=== PATIENT | female | born 1980 | race Caucasian/White ===

== ENCOUNTER 2016-06-20 10:12 | Emergency (ER) | payer MEDICARE, MEDICAID ==
--- NOTE | 2016-06-20 10:28 | Emergency Department Record ---
History of Present Illness - General Chief Complaint: Abdominal Pain Stated Complaint: HEARTBURN Time Seen by Provider: 06/20/16 10:26 Source: Patient Mode of Arrival: Ambulatory Limitations: No limitations - History of Present Illness Initial Comments: The patient is here due to a 2 hour hx of upper abdominal pain. The pain is sharp and crampy and came on when she was sleeping. There is no radiation to the back or lower abdomen. She did take Tums and Mylanta with no resolution. The patient does deny any nausea, vomiting, diarrhea, chest pain, shortness of breath, or recent fevers. She has no hx of similar problems and has had no abominal surgeries. MD Complaint: Abdominal pain Onset/Timin -: Hour(s) Location: Epigastric Radiation: None Consistency: Intermittent Improves With: Nothing Worsens With: Nothing Associated Symptoms: Nausea Treatments Prior to Arrival: Antacids - Related Data Patient : No Home Medications Medication Instructions Recorded Confirmed Last Taken Acyclovir [Acyclovir] 800 mg PO ASDIR PRN 09/02/14 06/20/16 Unknown Clonazepam [Clonazepam] 1 mg PO DAILY 09/02/14 06/20/16 06/19/16 Ethynodiol D-Ethinyl Estradiol 1 tab PO DAILY 09/02/14 06/20/16 06/20/16 [Zovia 1-35E Tablet] Fluoxetine HCl [Fluoxetine HCl] 10 mg PO DAILY 09/02/14 06/20/16 06/20/16 Omeprazole [Prilosec] 20 mg PO DAILY 09/02/14 06/20/16 06/20/16 10:19 Carvedilol 12.5 mg PO ASDIR tab 01/25/16 06/20/16 06/20/16 Previous Rx's Medication Instructions Recorded Hydrocortisone [Anusol-Hc] 1 apply RC DAILY #1 tube 09/02/14 Sucralfate [Carafate] 1 gm PO QID #28 tablet 06/20/16 Allergies Allergy/AdvReac Type Severity Reaction Status Date / Time No Known Drug Allergies Allergy Verified 06/20/16 10:15 Travel Screening - Travel/Exposure Within Last 30 Days Have you traveled within the last 30 days?: No - Travel/Exposure Within Last Year Have you traveled outside the [place] in the last year?: No - Additonal Travel Details Have you been exposed to anyone with a communicable illness?: No - Travel Symptoms Symptom Screening: None Review of Systems Constitutional: Denies: Chills, Fever Eyes: Denies: Eye discharge ENT: Denies: Congestion Respiratory: Denies: Cough, Dyspnea Past Medical History - SOCIAL HISTORY Smoking Status: Never smoker Alcohol Use: None Drug Use: None - RESPIRATORY Hx Respiratory Disorders: No - CARDIOVASCULAR Hx Cardio Disorders: Yes Hx Hypertension: Yes - NEURO Hx Neuro Disorders: No - GI Hx GI Disorders: Yes Hx Reflux: Yes - Hx Genitourinary Disorders: Yes Comment:: Irregular menses - ENDOCRINE Hx Endocrine Disorders: No - MUSCULOSKELETAL Hx Musculoskeletal Disorders: No - PSYCH Hx Psych Problems: Yes Hx Anxiety: Yes Hx Depression: Yes - HEMATOLOGY/ONCOLOGY Hx Hematology/Oncology Disorders: No Family Medical History Any Significant Family History?: Yes Hx Cancer: Grandparents Hx Diabetes: Grandparents Hx Heart Disease: Father *Heart Comment: w/Aunt Physical Exam - General General Appearance: Alert, Oriented x3, Cooperative, No acute distress - Head Head exam: Atraumatic, Normocephalic, Normal inspection - Eye Eye exam: Normal appearance, PERRL - Neck Neck exam: Normal inspection, Full ROM. negative: Tenderness - Respiratory Respiratory exam: Normal lung sounds bilaterally. negative: Respiratory distress - Cardiovascular Cardiovascular Exam: Regular rate, Normal rhythm, Normal heart sounds - GI/Abdominal GI/Abdominal exam: Soft, Normal bowel sounds, Tenderness (There is mild epigastric tenderness to palpation that does reproduce the pain.). negative: Distended, Rebound, Rigid Course Vital Signs 06/20/16 10:21 Temperature 98.4 F Pulse Rate 74 Respiratory 20 Rate Blood Pressure 150/110 Pulse Ox 99 - Reevaluation(s) Reevaluation #1: The patient is doing much better at this time. She denies any pain or discomfort presently. 06/20/16 11:04 Reevaluation #2: The patient is doing well. She is up walking with no difficulty but does have mild nausea and mild upper AP. The pain is much improved. 06/20/16 12:09 Reevaluation #3: 06/20/16 13:46 The patient is doing much better. She denies any AP, nausea, vomiting, or discomfort. On exam her abdomen is very soft and nontender in all 4 quads. Medical Decision Making - Data Complexity MDM Data: Labs Ordered and/or Reviewed, X-Ray Ordered and/or Reviewed, EKG Ordered and/or Reviewed - Lab Data Result diagrams: 06/20/16 11:36 06/20/16 11:04 - EKG Data -: EKG Interpreted by Me EKG: No Acute Changes, Normal EKG - Radiology Data Radiology results: Report reviewed (CT: Abd CT WNL's with no surgical pathology. ) Disposition Disposition: Discharge Clinical Impression: Abdominal pain Qualifiers: Abdominal location: unspecified location Qualified Code(s): R10.9 - Unspecified abdominal pain Disposition: Home, Self-Care Condition: (1) Good Instructions: Abdominal Pain (ED) Additional Instructions: Please eat a very bland diet with no fatty or fried foods. Take the Carafate as directed. Please see your PCP early next week for recheck. Return to the ER for any increased pain, fever, vomiting, or bleeding. Prescriptions: Sucralfate [Carafate] 1 gm PO QID #28 tablet Forms: Patient Portal Access Time of Disposition: 14:01
[2016-06-20] MEDS ORDERED: ONDANSETRON HCL IV 4 MG/2 ML VIAL IV ONE (10:33)
[2016-06-20] MEDS ORDERED: SUCRALFATE 1 G/10 ML UD PO ONE (10:33)
[2016-06-20] MEDS ORDERED: 0.9 % SODIUM CHLORIDE 1,000 ML BAG IV ONE (10:33)
[2016-06-20 11:15] LABS: URINE APPEARANCE CLEAR; URINE BILIRUBIN NEGATIVE (NEGATIVE); URINE BLOOD SMALL (NEGATIVE); URINE COLOR YELLOW; URINE GLUCOSE (UA) NEGATIVE (NEGATIVE); URINE KETONE TRACE (NEGATIVE); URINE LEUKOCYTE ESTERASE NEGATIVE (NEGATIVE); URINE NITRITE NEGATIVE (NEGATIVE); URINE UROBILINOGEN 0.2 E.U./dL (0.20 - 1.00)
[2016-06-20 11:23] LABS: HCG,QUALITATIVE URINE NEGATIVE (NEGATIVE); URINE BACTERIA FEW
[2016-06-20 11:27] LABS: ALBUMIN 3.9 gm/dL (3.5-5.0); ALKALINE PHOSPHATASE 68 U/L (38-126); ALT/SGPT 24 U/L (9-52); ANION GAP 11.8 (7-16); AST/SGOT 28 U/L (14-36); BILIRUBIN,TOTAL 0.36 mg/dL (0.2-1.3); BLOOD UREA NITROGEN 9 mg/dL (7-17); CARBON DIOXIDE 20.2 mmol/L (22-30); CREATININE 0.6 mg/dL (0.52-1.04); EST GLOMERULAR FILTRATION RATE > 60 ml/min; GLUCOSE,RANDOM 132 mg/dL (70-110); LIPASE 73 U/L (23-300); TOTAL PROTEIN 7.9 gm/dL (6.3-8.2)
[2016-06-20 11:41] LABS: BASO % 0.5 % (0-6); EOS % 1.9 % (0-6); GRAN % 67.9 % (47-80); HEMATOCRIT 38.4 % (35.0-47.0); HEMOGLOBIN 11.8 gm/dl (11.6-16.0); LYMPH % 22.6 % (16-45); MEAN CELL VOLUME 85.5 fl (81-97); MEAN CORPUSCULAR HEMOGLOBIN 26.3 pg (27-33); MEAN CORPUSCULAR HGB CONC 30.7 g/dl (32-36); MEAN PLATELET VOLUME 9.3 fl (7.4-10.4); MONO % 7.1 % (0-9); PLATELET COUNT 299 K/uL (130-400); RED BLOOD COUNT 4.49 M/uL (3.80-5.40); RED CELL DISTRIBUTION WIDTH 14.5 % (11.5-14.5); WHITE BLOOD COUNT W/O DIFF 8.6 K/uL (4.2-12.2)
[2016-06-20] MEDS ORDERED: ONDANSETRON HCL IV 4 MG/2 ML VIAL IVP ONE (11:58)
[2016-06-20] MEDS ORDERED: MAGNESIUM HYDROXIDE/AL HYDROX 30 ML, LIDOCAINE VISC 2% 200 MG PO ONE ×2 (12:01)
== END 2016-06-20 14:12 | disposition home or self-care (01) ==
LOC: ER 10:12
DX: R10.13 Epigastric pain (principal); R11.0 Nausea
CPT/HCPCS: 99284 ×2; 96374; 96375; 83690; 85025; 80076; 80048; 81001; 81025; 74177; 93005; 93010; Q9967; J2405; J7030